=== PATIENT | male | born 1980 ===

== ENCOUNTER 2017-07-13 16:37 | Emergency (ER) | payer SELFPAY ==
[2017-07-13 16:44] VITALS: BP 132/87; PULSE 100; RESP 20; TEMP 98.6; O2SAT 100
[2017-07-13] MEDS ORDERED: Tetanus/Diphtheria Toxoids 0.5 ml Syringe IM ONE ×2 (17:19→17:32)
--- NOTE | 2017-07-13 17:19 | C.PDOC ---
History Of Present Illness 37 year old male presents to the ED c/o left knee, right thigh and right lower back injury which occurred this morning. 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 Patient was ambulatory on scene. Denies head injury. Patient states he went home, was asymptomatic in the beginning but now has increased pain. Symptoms are worse with movement. Patient has not taken any pain medicine. CO L KNEE, R THIGH AND R LOWER BACK INJURY ONSET THIS MORNING. ACCID FALL DOWN OPEN STAIRS OF S[employer]ALK [employer] BASEMENT. AMBUL ON SCENE NO HEAD INJURY. PS WENT HOME, WAS ASYMPT IN BEGINNING BUT NOW W INCR PAIN. WORSE W MOVEMENT. NO PAIN MEDS TRIED EXAM MILD DIST NONTOXIC HEENT ATRAUM EXT L KNEE AROM W PAIN NO DEFORM/SUBLUX, MIN ANT SWELL. R HIP AROM WO DIFF. BACK +SPASM R LOWER BACK W LOCAL TEND NO LS TEND ATRAUM SKIN +ABRASION R THIGH, L KNEE. NO ACTIVE BLEED NEURO INTACT - HPI Time Seen by Provider: 07/13/17 16:59 Chief Complaint (Nursing): Lower Extremity Problem/Injury History Per: Patient History/Exam Limitations: no limitations Onset/Duration Of Symptoms: Hrs Additional History Per: Patient Past Medical History Reviewed: Historical Data, Nursing Documentation, Vital Signs Vital Signs: Last Vital Signs Temp 98.6 F 07/13/17 16:44 Pulse 100 H 07/13/17 16:44 Resp 20 07/13/17 16:44 BP 132/87 07/13/17 16:44 Pulse Ox 100 07/13/17 17:36 - Medical History PMH: Anxiety Surgical History: No Surg Hx Family History: States: Unknown Family Hx - Social History Hx Tobacco Use: No Hx Alcohol Use: Yes Hx Substance Use: No - Immunization History Hx Tetanus Toxoid Vaccination: No Hx Influenza Vaccination: No Hx Pneumococcal Vaccination: No Review Of Systems Musculoskeletal: Positive for: Back Pain, Other (left knee pain, right thigh pain ) Physical Exam - Physical Exam Appears: Non-toxic, Other (in mild distress ) Skin: Normal Color, Warm, Dry, Other ( +ABRASION R THIGH, L KNEE. NO ACTIVE BLEED) Head: Atraumatic, Normacephalic Eye(s): bilateral: Normal Inspection Ear(s): Bilateral: Normal Nose: Normal, No Discharge Oral Mucosa: Moist Throat: Normal, No Erythema, No Exudate Back: Other ( +SPASM R LOWER BACK W LOCAL TEND NO LS TEND ATRAUM) Extremity: Capillary Refill (less than 2 seconds ), Other (EXT L KNEE AROM W PAIN NO DEFORM/SUBLUX, MIN ANT SWELL. R HIP AROM WO DIFF. ) Neurological/Psych: Oriented x3, Normal Speech, Normal Cognition Gait: Steady ED Course And Treatment O2 Sat by Pulse Oximetry: 100 (on RA) Pulse Ox Interpretation: Normal - Other Rad L KNEE X-Ray: Interpreted by Me (NEG) Progress Note: Left knee XR ordered and reviewed. Flexeril PO, Toradol IM, and Tetanus IM administered. Disposition Counseled Patient/Family Regarding: Studies Performed, Diagnosis, Need For Followup, Rx Given - Disposition Referrals: [facility] [Outside] [facility] [Outside] Disposition: HOME/ ROUTINE Disposition Time: 17:35 Condition: GOOD Additional Instructions: APLICA PARCHE AL ROBBY AFECTADA. MAX 3 PARCHES A LA VEZ. RETIRE EL PATCH 12 HORAS DESPUS DE LA APLICACIN INICIAL. ALTERNATIVAS 12 HORAS ACTIVADAS, 12 HORAS DESACTIVADAS. Prescriptions: Cyclobenzaprine [Flexeril] 10 mg PO TID #15 tab Ibuprofen [Motrin] 600 mg PO Q6 #30 tab Lidocaine 5% [Lidoderm] 1 ea TD PRN PRN #10 patch PRN Reason: Pain, Moderate (4-7) Forms: [facility] (Citizen Of [place]), Work Excuse Print Language: GREEK - Clinical Impression Clinical Impression: Multiple contusions, Back pain, Knee pain, Multiple abrasions - Scribe Statement The provider has reviewed the documentation as recorded by the Scribe (Mar Doe) Provider Attestation: All medical record entries made by the Scribe were at my direction and personally dictated by me. I have reviewed the chart and agree that the record accurately reflects my personal performance of the history, physical exam, medical decision making, and the department course for this patient. I have also personally directed, reviewed, and agree with the discharge instructions and disposition.
--- NOTE | 2017-07-13 18:06 | RAD ---
PROCEDURE: Left Knee Radiographs. HISTORY: Posttraumatic left knee pain COMPARISON: None. FINDINGS: BONES: Normal. No fracture. JOINTS: Normal. No osteoarthritis. JOINT EFFUSION: None. OTHER FINDINGS: None. IMPRESSION: No acute findings related to/accounting for the clinical presentation. Concordant results with the preliminary interpretation rendered by the emergency department physician procedure.
== END 2017-07-13 17:47 | disposition home or self-care (01) ==
LOC: C.ER 16:37
DX: T14.8XXA Other injury of unspecified body region, initial encounter (principal); S80.212A Abrasion, left knee, initial encounter; S70.311A Abrasion, right thigh, initial encounter; W10.9XXA Fall (on) (from) unspecified stairs and steps, initial encounter; Y92.511 Restaurant or cafe as the place of occurrence of the external cause; M54.9 Dorsalgia, unspecified; M25.562 Pain in left knee
CPT/HCPCS: 73562; 90471; 90714; 96372; 99284; J1885